=== PATIENT | female | born 2000 | race Caucasian/White ===

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

== ENCOUNTER 2021-03-18 19:00 | Outpatient (REF) | payer OTHER, SELFPAY ==
[2021-03-19 22:01] LABS: COVID-19 RT-PCR UVMMC Result Positive (Negative)
== END 2021-03-18 19:01 | disposition home or self-care (01) ==
LOC: LBN 19:00
PROVIDERS: PCP Family Medicine; Visit Provider Family Medicine
DX: Z20.822 Contact with and (suspected) exposure to COVID-19 (principal)
CPT/HCPCS: U0003

== ENCOUNTER 2021-06-02 01:22 | Outpatient (CLI) | payer OTHER, SELFPAY ==
--- NOTE | 2021-06-02 06:45 | DI.MRI_ITS ---
Exam(s) MR LOWER JOINT LT WO EXAM: MR LOWER JOINT LT WO CLINICAL HISTORY: LEFT ANKLE PAIN,m25.572 TECHNIQUE: Multiplanar multisequence MRI was performed without intravenous contrast. COMPARISON: No exams were available for comparison FINDINGS: BONES/JOINTS: No fracture or contusion pattern. No bone lesions identified. The talar dome is smooth. The ankle mortise is maintained. Small amount of fluid is seen in the posterior tibiotalar and taloc alcaneal joints. LIGAMENTS: The tibiofibular and calcaneofibular ligaments are intact. The anterior talofibular ligame nt are somewhat indistinct and shows mild edema.. The deltoid ligament is somewhat indistinct and sh ows some high signal, consistent with a sprain.. The syndesmosis is unremarkable. Sinus tarsi is nor mal. MUSCULOTENDINOUS STRUCTURES: Achilles tendon: Unremarkable. Plantar fascia: Unremarkable. Anterior Extensor tendons: Unremarkable. Posterior Tibialis: Unremarkable. Flexor Digitorum longus: Unremarkable. Flexor Hallicus longus: Unremarkable. Peroneus longus: Unremarkable. Peroneus brevis:Unremarkable. SOFT TISSUES: Unremarkable. OTHER FINDINGS: None. IMPRESSION: Sprains of both the deltoid ligament and anterior talofibular ligament. No tendon abnormalities. Epifanio bertha and cartilage surfaces intact. DATA REPOSITORY:
== END 2021-06-02 01:42 ==
PROVIDERS: PCP Family Medicine; Visit Provider Family Medicine
DX: M25.572 Pain in left ankle and joints of left foot (principal); S93.422A Sprain of deltoid ligament of left ankle, initial encounter; S93.492A Sprain of other ligament of left ankle, initial encounter
CPT/HCPCS: 73721

== ENCOUNTER 2021-10-23 04:10 | Outpatient (CLI) | payer OTHER, MEDICAID, SELFPAY ==
[2021-10-23 12:41] LABS: Abs Immature Grans 0.02 10^3/uL (0.0-0.06); Absolute Basophil Count 0.06 10^3/uL (0.0-0.2); Absolute Eosinophil Count 0.27 10^3/uL (0.0-0.7); Absolute Lymphocyte Count 2.89 10^3/uL (1.2-3.4); Absolute Neutrophil Count 6.51 10^3/uL (1.2-6.7); Basophils % 0.6; Eosinophils % 2.6; HGB 13.3 g/dL (11.2-15.7); Immature Grans % 0.2; Lymphocytes % 28.2; MCH 27.8 pg (27.0-33.0); MCHC 32.4 % (32.0-36.0); MCV 86 fL (80-95); MPV 10.7 fL (8.0-11.0); Monocytes % 4.9; Neutrophils % 63.5; Platelet Count 277 10^3/uL (130-400); RBC 4.79 10^6/uL (3.93-5.22); RDW 13.2 % (11.7-14.6); RDW-SD 41.3 fL; WBC 10.25 10^3/uL (4.4-10.8)
[2021-10-23 12:58] LABS: Iron 101 ug/dL (50-170)
[2021-10-23 13:04] LABS: ALT 25 U/L (14-59); AST 18 U/L (15-37); Albumin 4.2 g/dL (3.4-5.0); Alkaline Phosphatase 86 U/L (46-116); Anion Gap 8.1 mmol/L (3-11); BUN 12 mg/dL (7-18); Bilirubin, Total 0.5 mg/dL (0.2-1.0); CO2 29.9 mmol/L (21.0-32.0); CREATININE 0.9 mg/dL (0.55-1.02); Calcium 9.2 mg/dL (8.5-10.1); Chloride 104 mmol/L (98-107); Ferritin 19 ng/mL (8-252); Glucose 55 mg/dL (74-106); Potassium 4.7 mmol/L (3.5-5.1); Sodium 142 mmol/L (136-145); TSH (W/Ref FT4) 1.11 uIU/mL (0.36-3.74); Total Protein 7.5 g/dL (6.4-8.2)
[2021-10-24 10:36] LABS: Hemoglobin S Screen Negative (Negative)
== END 2021-10-23 04:11 | disposition home or self-care (01) ==
LOC: LOS 04:11
PROVIDERS: PCP Family Medicine; Visit Provider Family Medicine
DX: Z00.00 Encounter for general adult medical examination without abnormal findings (principal); R53.83 Other fatigue; M54.2 Cervicalgia; Z13.0 Encounter for screening for diseases of the blood and blood-forming organs and certain disorders involving the immune mechanism
CPT/HCPCS: 36415; 80053; 82728; 83540; 84443; 85025; 85660

== ENCOUNTER → 2022-10-13 02:46 | Outpatient (CLI) | payer MEDICAID, SELFPAY ==
--- NOTE | 2022-10-13 07:00 | DI.MRI_ITS ---
Exam(s) MR LOWER JOINT LT WO EXAM: MR LOWER JOINT LT WO CLINICAL HISTORY: ACL, retorn, s/p surgery,s83.519a. TECHNIQUE: Multiplanar multisequence MRI was performed. COMPARISON: MR MR LOWER JOINT RT WO from 05/24/2020 FINDINGS: The examination is limited due to patient motion artifact. BONES: There is no fracture or contusion pattern. JOINTS: Articular cartilage is unremarkable. There is a moderate joint effusion. There is no loose b adalberto. TENDONS: Extensor mechanism: Unremarkable. Medial retinaculum: Unremarkable. Lateral retinaculum: Unremarkable. Popliteus: Unremarkable. MUSCLES: Unremarkable. MENISCI: There is decreased size and abnormal signal seen in the posterior horn of the medial meniscu s. There appears to be meniscal material in the anterior joint space consistent with a tear and a fl ipped fragment. The lateral meniscus is unremarkable. SOFT TISSUES: Unremarkable. LIGAMENTS: Anterior Cruciate: There is an intact anterior cruciate ligament repair. Posterior Cruciate: Unremarkable. Medial Collateral:There is a small amount of fluid around the medial collateral ligament which may re present a sprain. No evidence of a tear. Lateral Collateral: Unremarkable. OTHER: IMPRESSION: 1. Intact ACL repair. 2. Tear of the posterior horn of the medial meniscus with flipped meniscal material into the anterior joint space. 3. Moderate joint effusion. 4. MCL sprain without evidence of a tear. DATA REPOSITORY:
== END ==
PROVIDERS: PCP Family Medicine; Visit Provider Family Medicine
DX: M23.221 Derangement of posterior horn of medial meniscus due to old tear or injury, right knee (principal); S83.411A Sprain of medial collateral ligament of right knee, initial encounter; X58.XXXA Exposure to other specified factors, initial encounter
CPT/HCPCS: 73721

== ENCOUNTER 2022-10-14 12:02 | Outpatient (CLI) | payer MEDICAID, SELFPAY ==
--- NOTE | 2022-10-14 11:30 | DI.RAD_ITS ---
Exam(s) XR KNEE LT 3V AP,LAT,GOPAL EXAM: XR KNEE LT 3V AP,LAT,GOPAL CLINICAL HISTORY: LEFT KNEE PAIN. TECHNIQUE: 2D digital imaging was performed of the left knee. Three images were obtained. Merchant ,AP and lateral views were obtained. COMPARISON: CR XR knee LT 3V AP,lat,gopal from 02/21/2018 CR,XR XR CHEST 2V PA LATERAL from 09/19/2020 FINDINGS: BONES: No acute fracture is present. No bony destructive lesion is seen. There again seen postsurgic al changes of an ACL repair. JOINTS: The knee is normally aligned. There is a small joint effusion. No loose body. SOFT TISSUE: Normal. IMPRESSION: Small joint effusion. DATA REPOSITORY: RADIATION DOSE DELIVERED:
== END 2022-10-14 12:03 | disposition home or self-care (01) ==
LOC: DIORS 12:02
PROVIDERS: PCP Family Medicine; Visit Provider Student in an Organized Health Care Education/Training Program
DX: M25.562 Pain in left knee (principal)
CPT/HCPCS: 73562

== ENCOUNTER 2022-10-22 08:33 | Day surgery (SDC) | payer MEDICAID, SELFPAY ==
[2022-10-22] VITALS (11 sets, daily range): BP systolic 101–130; BP diastolic 45–86; PULSE 53–80; RESP 11–21; TEMP 36.3–36.8; O2SAT 95–100; BMI 26.3
--- NOTE | 2022-10-22 07:15 | W.PM.DSUDISC ---
Date of service: 10/22/22 Time of Service: 15:00 Discharge Plan Disposition Patient Disposition: Home Discharge Details Attending Provider: Derrek Smith Primary Care Provider: Nyasia Frank Home Meds and New Rx's Prescriptions: New aspirin 81 mg tablet,delayed release (DR/EC) 81 mg PO DAILY 14 Days Qty: 14 0RF oxycodone 5 mg tablet 5 - 10 mg PO Q4H MDD 30 mg PRN (Reason: moderate to severe pain) Qty: 18 0RF naproxen 250 mg tablet 250 - 500 mg PO BID PRNQty: 40 0RF Rx Instructions: take with a meal Discharge Instructions Additional Instructions: Surgery: Left knee arthroscopy with horizontal posterior horn medial meniscus repair (after partial medial meniscectomy of radial and vertical tears), extensive debridement (partial ACL tearing, medial plica, and synovitis), and intercondylar notch bone marrow stimulation Activity: Weightbearing in full extension-only for 6 weeks. Use crutches and/or brace as needed to protect and maintain knee straight. Seated/ non-weight bearing flexion 0-90 degrees maximum for 6 weeks. 120 degrees maximum flexion for 8 weeks. Spin/bike after 8 weeks. No weighted deeper flexion (squats, lunges) for 10 weeks. ACL rehab after 3 months. Prescriptions: Aspirin 81 mg take 1 daily to prevent a blood clot for 14 days Naproxen 250 mg take 1-2 every 12 hours with a meal as needed for moderate pain Oxycodone 5 mg take 1-2 every 4-6 hours as needed for severe pain You may use qdlz-khc-zfvhhhi Tylenol (acetaminophen) as needed for mild pain. These pain medications may be taken all at once or in different combinations as needed. Also, recommend Colace (docusate) as a stool softener as surgery and pain medicine cause constipation. You may try ubng-vin-ybazpye diphenhydramine (Benadryl) 25-50 mg nightly as a sleep aid Dressings: Leave dressing in place for 3 days. May then remove and leave open to air or cover incisions with Band-Aids. Leave the sticky Steri-Strips in place until they fall off or remove them after you shower. May shower after 5 days. Follow-up: 10-[address] Smith You may take off the leg compression stockings this evening at home. You may also leave them on a few days longer if you have a history of leg swelling or edema. Let us know right away if you develop any redness, drainage, fevers, chest pain, or trouble breathing. Do not drink alcohol or drive for at least 24 hours after anesthesia. Please call the office during business hours with any questions or concerns. Stand Alone Forms: Anesthesia Discharge Inst., Abilio Fierro (DSU) Discharge Orders Discharge Orders: Discharge Order (Routine); Ordered 10/22/22 Ordered By: Derrek Smith DS: Diagnosis Discharge Diagnosis (1) Bucket handle tear of meniscus of left knee: Status: Acute (2) Left ACL tear: Status: Acute
--- NOTE | 2022-10-22 07:18 | ROE_ITS ---
Date of service: 10/22/22 Time of Service: 11:00 Operative Note Operative Note DATE OF PROCEDURE: 10/22/22 PRE-OP DIAGNOSIS: Left knee 1. Recurrent medial meniscus tear 2. Prior ACL reconstruction POST-OP DIAGNOSIS: same Left knee 1. Recurrent medial meniscus tear 2. Prior ACL reconstruction with partial failure PROCEDURE: Left knee 1. Extensive debridment, CPT# 52042: Debridement suprapatellar adhesions, resection prominent patellofemoral plica, debridement partial ACL graft tearing, and extensive synovectomy 2. Medial meniscus repair, CPT# 99860 and partial medial meniscectomy involving resection of the radial and vertical tear components of the posterior horn into the meniscal body 3. Microfracture bone marrow stimulation, CPT #28984: Multiple drilling intercondylar notch SURGEON: Derrek Smith RESPIRATORY THERAPY TECHNICIAN: None None ANESTHESIA TYPE: Local By Surgeon and General LMA/ETT Refer to Anesthesia Record ESTIMATED BLOOD LOSS: 5 PATHOLOGY: none sent TOURNIQUET TIME: 0 COMPLICATIONS: None Patient was transported to: PACU Patient's condition: stable Indications: Please see complete medical record for details. Findings: Exam under anesthesia: Improved, nearly full range of motion. Moderate valgus alignment. Mild terminal hyperextension. Soft Arsh exam with moderately increased anterior translation. Contralateral side also ACL reconstruction so no good comparison. Arthroscopic findings: Mild suprapatellar adhesions. Large plical band versus engaging thickened synovitis medial patellofemoral and anterior medial compartments. Mild chondromalacia medial compartment. Obvious displaced bucket-handle medial meniscus tear involving majority of the posterior horn and meniscal body stopping before the anterior horn. Chronic and irregular meniscal displaced tissue and remnant appearance probably relating to prior injury and repair. Poor quality appearing ACL hamstring reconstruction with separation between the graft strands and partial tearing maybe about 50% at the mid to tibial side. On probing the graft did demonstrate either elongation or laxity and unfortunately poor quality tissue with no core graft healed together. Intact lateral compartment cartilage and meniscus. In hyperextension, possible ACL graft impingement at the site of tearing in the intercondylar notch. Procedure Description: In the operating room, general anesthesia was induced. The patient was positioned supine on the operating room table. All bony prominences were well- padded. Preoperative antibiotics were administered. The knee was prepped and draped in the usual sterile fashion. The correct patient, procedure, and side of the procedure were all verified prior to incision. Exam under anesthesia was performed. 10 cc of 0.25% bupivacaine containing epinephrine was infiltrated about the planned anteromedial and anterolateral knee arthroscopy portals, which were different than the prior portals due to growth or placement as the prior ones were far low and away from the patellar tendon. The portals were established and a complete diagnostic arthroscopy was performed with relevant findings detailed above. The mechanical shaver was used to remove adhesions from the suprapatellar space. The meniscal biter was used to resect and establish edges of the large medial patellofemoral and anterior medial plical band or engaging scar tissue synov itis. The mechanical shaver was used to debride and resect this tissue once the free edges of been established to stable's margins. At this point, the arthroscope was able to be directed into the medial compartment. There was obvious medial meniscus tearing and ACL tearing as described above. Unfortunately, this represented a bad combination of injuries recurrent significant medial meniscus tearing and ACL tearing loss of primary and secondary stabilizers. The displaced meniscus tissue was not the best quality and had vertical tear at the posterior horn and also a moderately significant r adial tear at the posterior horn body junction. The meniscal remnant throughout the posterior horn had an additional horizontal tear that propagated to the capsular margin. The meniscal remnant otherwise had a stable posterior root attachment and attachment peripheral zone into the anterior horn. The loose and lax ACL tissue was inspected and carefully resected using mechanical shaver and the radiofrequency wand to a more appropriate stable margin taking care not to debride any excess tissue and preserve as much reasonable ACL reconstructed graft as possible. Numerous photos and examples were taken for future planning possible revision ACL reconstruction. The medial meniscus was then reduced using the blunt trocar into the medial compartment. Given the young age, repair was considered, but on reduction and probing the splits and meniscus tissue quality were not appropriate. The meniscal biters were used to contour around the radial tear, which resulted in the radial tear being full-thickness to the red zone remnant so combination of biters and boone were then used to contour about this reduced radial tear resecting meniscus into the anterior horn and into the posterior horn. The posterior horn reduced tear was likewise probed and now without the radial attachments more anteriorly and its vertical tear additionally did not have the quality needed for repair. Meniscal biters and shaver were used to resect this tissue and establish appropriate contour into the root. The meniscal remnant had a horizontal tear throughout the entire posterior horn. Otherwise stable r emainder of remnant tissue. Numerous pictures were also taken and probing to confirm mild chondromalacia and fairly diminutive remnant involving the red zone peripheral meniscus tissue. Given the horizontal tear still present and the need to preserve some meniscus tissue, decision was made to proceed with all?inside cerclage repair. The knee scorpion was brought in through the anteromedial portal and used to place 3 circumferential mini 0.9 mm suture tape stitches well displaced throughout the posterior horn around the horizontal tear tissue with each secured using SMC arthroscopic knot taking care to direct the knot inferiorly and peripherally away from the joint. The posterior horn meniscal remnant now had more reasonable contour shape and repair of the horizontal tear. The knee was copiously irrigated with arthroscopic fluid until there was a clear effluent. Care was taken to ensure all meniscal fragments were removed. Lastly, given the significant meniscus and ACL injuries. Decision was made to proceed with bone marrow stimulation, which involve small 1.1 mm K wire multiple drillings anterior to the PCL through the anterior lateral portal into the medial intercondylar wall expressing blood and fat droplets from in the bone appropriately. The knee was then drained of all fluid. The anteromedial and anterolateral portals were closed in 3-0 Monocryl in a buried interrupted fashion. Mastisol, Steri-Strips, and 4 x 4 gauze were applied over the incisions followed by sterile soft roll. The knee was then wrapped gently with an XOCHITL comressive bandage. The patient awoke from anesthesia without complication and was transferred to the recovery room in a stable condition.
--- NOTE | 2022-10-22 08:22 | ANES.PREOP_ITS ---
General Info Date of Service Date Performed: 10/22/22 Height: 5 ft 8 in Weight: 78.471 kg Body Mass Index (BMI): 26.3 Surgical Procedure: Operation Date: 10/22/22 09:55 Proposed Procedure Side Surgeon p Knee Arthroscopy w Probable Meniscus Repair & Bone Stimulation Left Derrek Smith MD Meds Allergies and Home Medications Allergies Allergy/AdvReac Type Severity Reaction Status Date / Time Penicillins Allergy Intermediate Rash Verified 10/22/22 08:50 cephalexin AdvReac Intermediate GI UPSET Verified 10/22/22 08:50 Home Medication Medication Instructions Recorded Unknown [No Known Home Meds] 10/14/22 Current Visit Medications: Current Medications Generic Name Dose Route Start Last Admin Trade Name Freq PRN Reason Stop Dose Admin Ringer's Solution 1,000 mls @ 30 mls/hr 10/22/22 06:00 IV 11/20/22 23:59 INFUSION SHANI Cefazolin Sodium/Dextrose 2 gm in 50 mls @ 100 mls/hr 10/22/22 06:00 Ancef Duplex IVPB 10/22/22 16:00 PREOP SHANI IV Miscellaneous Supplies 1 each 10/22/22 06:00 Iv Access IV 11/20/22 23:59 DIRECTED SHANI Oxycodone HCl 0 mg 10/22/22 07:15 Oxycodone 5 Mg Tab PO 11/21/22 07:14 Q3H PRN PRN Pain Sodium Chloride 0 ml 10/22/22 06:00 Normal Saline Flush 10 Ml Syr IV 11/20/22 23:59 PRN PRN Sodium Chloride 0 ml 10/22/22 06:00 Normal Saline 10 Ml Vial IJ 11/20/22 23:59 DIRECTED PRN Sterile Water 0 ml 10/22/22 06:00 Water,Injection,Sterile 10 Ml Vial IJ 11/20/22 23:59 DIRECTED PRN PFSH Active Problems Active Problems: Problem Status Onset Code Asthma 05/02/13 J45.909 Torn ACL S83.519A Lymphadenopathy of head and neck Skin pigmentation disorder Routine sports physical exam Injury of posterolateral corner of left knee S89.92XA Status post repair of anterior cruciate ligament 05/15/15 Z98.890 Enuresis 12/10/14 R32 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 Well child examination Z00.129 Fever R50.9 Medial meniscus tear S83.249A Right hamstring muscle strain S76.311A Fever R50.9 Abdominal pain R10.9 Headache R51.9 RLQ abdominal pain R10.31 Leukocytosis (leucocytosis) D72.829 Seasonal allergies J30.2 Abdominal pain R10.9 Chronic sinusitis J32.9 Enlarged adenoids J35.2 Lyme disease A69.20 Chronic rhinitis J31.0 COVID-19 U07.1 Sprain of ankle, deltoid, left S93.422A Sprain of anterior talofibular ligament of left ankle S93.492A Encounter for annual physical exam Z00.00 Neck pain M54.2 Depression F32.A 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 Sprain of jaw, left side, initial encounter S03.42XA Pre-employment health screening examination Z02.1 Encounter for health-related screening Z13.9 Bucket handle tear of meniscus of left knee 09/25/22 S83.201A Medical History Medical History Enuresis 12/10/14 Postnasal drip 01/08/14 Rash 09/11/14 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 Tender lymph node 11/08/14 Surgical History Surgical History Arthroplasty of knee 05/15/15 [facility]; RIGHT KNEE History of bunionectomy History of repair of anterior cruciate ligament of left knee History of repair of anterior cruciate ligament of right knee Repair, ACL 05/15/15 [facility]; RIGHT KNEE S/P ACL repair [facility]; right knee; with hamstring 05/15/15 Tobacco Smoking/Tobacco Use Status: Never Passive smoking exposure: Yes Second hand exposure: No Alcohol Alcohol Intake: current Alcohol intake frequency: holidays/special occasions only Alcohol type: beer and wine Substance Use Substance use: Never Substance use type: does not use Vital Signs and Lab Results Lab Results Blood Type / Crossmatch: No Data to Display Complete Blood Count: No Data to Display Complete Metabolic Panel: No Data to Display Liver Function Panel: No Data to Display Coagulation Panel: No Data to Display Cardiac Panel: No Data to Display Arterial Blood Gas: No Data to Display Venous Blood Gas: No Data to Display Pancreas Panel: No Data to Display Thyroid Panel: No Data to Display Infectious Disease: No Data to Display Blood Cultures: No Data to Display Toxicology Panel: No Data to Display Panel: No Data to Display Anesthesia Assessment and Plan Anesthesia History Personal History: No History of Anesthesia Complications Family History: No Family History of Anesthesia Complications Exercise Tolerance Exercise Tolerance: Metabolic Equivalents>4 Pertinent Negatives Pertinent Negatives: No Symptoms of GERD, No Major Cardiovascular Symptoms or Complaints, No Major Pulmonary Symptoms or Complaints and No History of CVA/TIA Cardiac & Pulmonary Exam Cardiac Exam: Normal S1/S2 Heart Sounds Pulmonary Exam: Clear Bilateral Breath Sounds Implantable Cardiac Device Does patient have a Pacemaker or an ICD?: No Airway Exam Known Difficult Airway: No Mallampati Class: 2 Mouth Opening: Normal (> 3cm) Thyromental Distance: Greater than 3 cm Neck Range of Motion: Full ROM Neck Circumference: Normal Teeth Condition: Normal Dentition ASA Classification ASA Score: ASA 2 Emergency Case?: No NPO Status NPO Status: NPO Clears >2 hours, Solids >8 hours Status Status: Negative HCG Anesthesia Plan Resuscitation Status: Full Code Anesthesia Technique: General Anesthesia Airway Planned: LMA Monitors Used: Standard Monitors
[2022-10-22] MEDS: Lactated Ringers 1,000 ML 30 ML IV ×2 (09:30→11:36)
[2022-10-22] MEDS: EPINEPHrine 30 MG/30 ML VIAL (12:08)
[2022-10-22] MEDS: fentaNYL 100 MCG/2 ML VIAL IVP ×2 (12:52→13:04)
[2022-10-22] MEDS: oxyCODONE 5 MG TAB PO (15:06)
--- NOTE | 2022-10-22 16:24 | W.ANESPOSTOP ---
Postoperative Evaluation Date, Time and Location Date Performed: 10/22/22 Time Performed: 15:10 Patient Location: Day Surgery Unit Vital Signs Most Recent Imported Vital Signs: Most Recent Vital Signs Temp Pulse Resp BP Pulse Ox 36.8 C 66 18 128/86 100 10/22/22 15:06 10/22/22 15:06 10/22/22 15:06 10/22/22 15:06 10/22/22 15:06 Pain Score Most Recent Pain Score: Most Recent Pain Score Pain Level 4 10/22/22 15:06 Assessment Mental Status: Awake (Alert & Oriented to Patient Baseline) Airway and Respiratory Function: Patent airway with normal (patient baseline) respiratory exam Cardiovascular Function: Hemodynamically Stable Hydration Status: Adequately Hydrated Nausea & Vomiting: No Nausea or Vomiting Pain: Pain is tolerable per patient Peripheral Nerve Block: Patient did not receive a nerve block
== END 2022-10-22 15:15 | disposition home or self-care (01) ==
PROVIDERS: PCP Family Medicine; Visit Provider Student in an Organized Health Care Education/Training Program
PROC: (CPT 29882; principal; 2022-10-22 09:45)
DX: M23.222 Derangement of posterior horn of medial meniscus due to old tear or injury, left knee; M65.862 Other synovitis and tenosynovitis, left lower leg; M94.262 Chondromalacia, left knee; Y83.2 Surgical operation with anastomosis, bypass or graft as the cause of abnormal reaction of the patient, or of later complication, without mention of misadventure at the time of the procedure; Y79.2 Prosthetic and other implants, materials and accessory orthopedic devices associated with adverse incidents
CPT/HCPCS: 29882; 29876; 29879; J0131; J1100; J2250; J2270; J2405; J2704; J3010

== ENCOUNTER 2022-11-03 11:14 | Outpatient (REF) | payer MEDICAID, SELFPAY ==
[2022-11-04 09:09] LABS: HBs Antibody, Quant 101.6 mIU/mL (See Note); Hepatitis B Surface Ab Positive (See Note)
== END 2022-11-03 11:15 | disposition home or self-care (01) ==
LOC: LBN 11:14
PROVIDERS: PCP Family Medicine; Visit Provider Family Medicine
DX: Z11.59 Encounter for screening for other viral diseases; R76.8 Other specified abnormal immunological findings in serum
CPT/HCPCS: 86706

== ENCOUNTER 2023-03-16 15:00 | Outpatient (REF) | payer OTHER, MEDICAID, SELFPAY ==
[2023-03-16 21:29] LABS: Abs Immature Grans 0.04 10^3/uL (0.0-0.06); Absolute Basophil Count 0.06 10^3/uL (0.0-0.2); Absolute Eosinophil Count 0.37 10^3/uL (0.0-0.7); Absolute Monocyte Count 0.71 10^3/uL (0.1-0.8); Absolute Neutrophil Count 7.31 10^3/uL (1.2-6.7); Basophils % 0.5; ESR 1 mm/hr (0-20); Eosinophils % 2.9; HCT 39.3 % (36.0-46.0); Immature Grans % 0.3; Lymphocytes % 34.1; MCH 29.1 pg (27.0-33.0); MCHC 33.1 % (32.0-36.0); MCV 88 fL (80-95); Monocytes % 5.5; Neutrophils % 56.7; Platelet Count 273 10^3/uL (130-400); RBC 4.47 10^6/uL (3.93-5.22); RDW 11.7 % (11.7-14.6); RDW-SD 37.4 fL; WBC 12.89 10^3/uL (4.4-10.8)
== END 2023-03-16 15:01 | disposition home or self-care (01) ==
LOC: LBN 15:00
PROVIDERS: PCP Family Medicine; Visit Provider Family Medicine
DX: M54.2 Cervicalgia (principal); R68.84 Jaw pain; R59.0 Localized enlarged lymph nodes
CPT/HCPCS: 85652; 85025

== ENCOUNTER 2023-03-31 21:17 | Outpatient (REF) | payer OTHER, MEDICAID, SELFPAY ==
[2023-03-31 21:38] LABS: Abs Immature Grans 0.06 10^3/uL (0.0-0.06); Absolute Basophil Count 0.05 10^3/uL (0.0-0.2); Absolute Lymphocyte Count 2.74 10^3/uL (1.2-3.4); Absolute Monocyte Count 1.08 10^3/uL (0.1-0.8); Basophils % 0.3; Eosinophils % 0.7; HCT 40.3 % (36.0-46.0); HGB 13.3 g/dL (11.2-15.7); Immature Grans % 0.3; Lymphocytes % 15.5; MCH 29.3 pg (27.0-33.0); MCV 89 fL (80-95); MPV 10.9 fL (8.0-11.0); Monocytes % 6.1; Neutrophils % 77.1; Platelet Count 258 10^3/uL (130-400); RBC 4.54 10^6/uL (3.93-5.22); RDW 11.9 % (11.7-14.6); RDW-SD 38.1 fL; WBC 17.66 10^3/uL (4.4-10.8)
[2023-03-31 21:39] LABS: ESR 14 mm/hr (0-20)
[2023-03-31 21:42] LABS: Absolute Eosinophil Count 0.12 10^3/uL (0.0-0.7); Absolute Neutrophil Count 13.62 10^3/uL (1.2-6.7)
[2023-03-31 21:51] LABS: ALT 20 U/L (14-59); AST 16 U/L (15-37); Alkaline Phosphatase 84 U/L (46-116); Anion Gap 9.2 mmol/L (3-11); BUN 8 mg/dL (7-18); Bilirubin, Total 0.3 mg/dL (0.2-1.0); C-Reactive Protein 6.38 mg/dL (0.0-0.3); CO2 27.8 mmol/L (21.0-32.0); Calcium 9.4 mg/dL (8.5-10.1); Chloride 102 mmol/L (98-107); Glucose 85 mg/dL (74-106); Potassium 3.9 mmol/L (3.5-5.1); Sodium 139 mmol/L (136-145); Uric Acid 2.3 mg/dL (2.6-6.0)
[2023-04-01 17:44] LABS: Rheumatoid Factor 11.2 IU/mL (<12.0)
[2023-04-02 10:04] LABS: IgA 81 mg/dL (85-499); IgG 743 mg/dL (610-1616); IgM 172 mg/dL (35-242)
[2023-04-02 10:13] LABS: Cyclic Citrullinated Peptide <2.5 U/mL (<5.0)
[2023-04-02 12:13] LABS: Albumin 60.5 % (55.8-66.1); Albumin g/dL 4.4 g/dL (3.6-5.2); Total Protein 7.2 g/dL (6.3-8.2)
[2023-04-05 16:00] LABS: ANA Interpretation Negative (Negative)
== END 2023-03-31 21:18 | disposition home or self-care (01) ==
LOC: LBN 21:17
PROVIDERS: PCP Family Medicine; Visit Provider Family Medicine
DX: R59.1 Generalized enlarged lymph nodes (principal); M25.549 Pain in joints of unspecified hand
CPT/HCPCS: 80053; 82784; 85652; 86200; 84165; 84550; 85025; 86038; 86140; 86431

== ENCOUNTER 2023-08-12 07:33 | Day surgery (SDC) | payer OTHER, MEDICAID, SELFPAY ==
[2023-08-12] VITALS (23 sets, daily range): BP systolic 104–125; BP diastolic 35–72; PULSE 52–75; RESP 10–20; TEMP 36.4–36.8; O2SAT 97–100; BMI 26.2
--- NOTE | 2023-08-12 07:05 | W.PM.DSUDISC ---
Date of service: 08/12/23 Time of Service: 14:00 Discharge Plan Disposition Patient Disposition: Home Condition: Stable Discharge Details Attending Provider: Derrek Smith Primary Care Provider: Nyasia Frank Home Meds and New Rx's Prescriptions: New aspirin 81 mg capsule 81 mg PO DAILY 14 Days Qty: 14 0RF naproxen 250 mg tablet 250 - 500 mg PO BID PRN (Reason: moderate pain and swelling) Qty: 40 0RF oxycodone 5 mg tablet 5 - 10 mg PO .q4-6h MDD 30 mg PRN (Reason: severe pain) Qty: 18 0RF Discharge Instructions Additional Instructions: Surgery: Left knee arthroscopy with revision ACL reconstruction (quadriceps allograft with internal brace), partial medial & lateral meniscectomy, and removal of hardware Activity: Weightbearing as tolerated. No brace or crutches needed as soon as comfortable and stable on knee. Restore full knee extension as soon as possible. Perform early quad sets/quadriceps isometrics. Gradually increase flexion to full. Recommend elevation to minimize swelling discomfort. Encourage ankle pumps and wiggle toes to improve circulation. A physical therapy prescription will be sent electronically to begin in 2 to 3 weeks. Avoid sports activities for about 9 months. Prescriptions: Aspirin 81 mg take 1 daily to prevent a blood clot for 14 days, starting tomorrow morning Naproxen 250 mg take 1-2 every 12 hours with a meal as needed for moderate pain Oxycodone 5 mg take 1-2 every 4-6 hours as needed for severe pain You may use jdea-qxr-wrqoshz Tylenol (acetaminophen) as needed for mild pain. These pain medications may be taken all at once or in different combinations as needed. Also, recommend Colace (docusate) as a stool softener as surgery and pain medicine cause constipation. You may try demw-rwe-pfkdefu diphenhydramine (Benadryl) 25-50 mg nightly as a sleep aid Dressings: Loosen/adjust XOCHITL bandage for comfort. Leave dressing in place for 3 days. May then remove and leave open to air or cover incisions with Band-Aids. Leave the sticky Steri-Strips in place until they fall off or remove them after you shower. May shower after 5 days. Follow-up: 10-[address] Smith You may take off the leg compression stockings this evening at home. You may also leave them on a few days longer if you have a history of leg swelling or edema. Let us know right away if you develop any redness, drainage, fevers, chest pain, or trouble breathing. Do not drink alcohol or drive for at least 24 hours after anesthesia. Please call the office during business hours with any questions or concerns. Stand Alone Forms: Anesthesia Discharge Inst., Sameer.[email or web address] Interaction, Abilio Fierro ([facility]U) Discharge Orders Discharge Orders: Discharge Order (Routine); Ordered 08/12/23 Ordered By: Shilpa Valerio DS: Diagnosis Discharge Diagnosis (1) Left ACL tear: Status: Acute
--- NOTE | 2023-08-12 07:19 | W.PM.OP ---
Date of service: 08/12/23 Time of Service: 11:00 Operative Note Operative Note DATE OF PROCEDURE: 08/12/23 PRE-OP DIAGNOSIS: Left knee 1. 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 Retained prior ACL reconstruction hardware 3. Recurrent medial meniscus tear POST-OP DIAGNOSIS: same Left knee 1. 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 Retained prior ACL reconstruction hardware 3. Recurrent medial meniscus tear 4. Small lateral meniscus tear PROCEDURE: Left knee: 1. Revision ACL reconstruction, CPT #59510: Quadriceps allograft with internal brace 2. Partial medial & meniscectomy, CPT #38717 3. Removal of deep hardware, CPT #47211 SURGEON: Derrek Smith SENIOR DEVOPS ENGINEER: Shilpa Valerio ANESTHESIA TYPE: Local By Surgeon, General LMA/ETT and Primary Nerve Block Refer to Anesthesia Record ESTIMATED BLOOD LOSS: 10 PATHOLOGY: none sent TOURNIQUET TIME: 0 COMPLICATIONS: None Patient was transported to: PACU Patient's condition: stable Implants: Arthrex ACL TightRope II RT internal brace and ABS with vs 14mm round cortical button QuadLink pre-sutured quadriceps allograft: 9.5 x70mm Indications: Please see complete medical record for details. Findings: Exam under anesthesia: Full range of motion with exaggerated terminal hyperextension. Positive Arsh, positive anterior drawer, and positive pivot glide. Stable varus and valgus. Valgus lower extremity alignment. Arthroscopic findings: Minimal synovitis. Stable mild medial chondromalacia. Largely intact medial meniscus repair of the posterior horn horizontal tear after prior meniscectomy with mild fraying centrally between the repair sutures. Small white zone only lateral meniscus body fraying. Bulbous degenerated and lax anterior portion of the prior ACL graft with healed intercondylar microfracture. Thin remaining more posterior intact ACL graft tissue although separate strands and not appearing vascularized. Procedure Description: In the operating room, general anesthesia was induced. The patient was positioned supine on the operating room table. All bony prominences were well-padded. Preoperative antibiotics were administered. The knee was prepped and draped in the usual sterile fashion. The correct patient, procedure, and side of the procedure were all verified prior to incision. Exam under anesthesia was performed. Local anesthetic containing epinephrine was infiltrated about the planned anteromedial, anterolateral, lateral distal femoral, and pretibial surgery sites with prior incisions used. The standard high and tight anterolateral and anteromedial portals were established and a complete diagnostic arthroscopy was performed with relevant findings detailed above. A passport cannula was inserted in both the anteromedial and anterolateral portals. The medial meniscus repair was probed and inspected and largely well-healed and stable. There was mild fraying horizontally between the repair sutures, which was debrided a small amount to a more stable zurita healthy tissue margin using the torpedo shaver. The lateral meniscus had a white zone only small amount of fraying about the body that was trimmed with a torpedo shaver as well. Back in the intercondylar area, the ACL remnant was thoroughly inspected. Meticulously the obviously lax and abnormal remnant tissue was removed with the ablator and the shaver. 50% or more of the remaining graft was removed until a more zurita appropriate healthy ACL tissue was encountered. Given the knee instability, and this diminutive tissue, which on probing was avascular and still multiple strands not well-healed together decision was made to proceed with the planned reconstruction. The ACL remnant was removed exposing the prior sockets, which were appropriately located on the femur and tibia. A small notchplasty was performed to improve visualization of the lateral intercondylar wall. The allograft was then measured and prepared on the back table. The TightRope II BTB with internal brace and TightRope II ABS adjustable-loop cortical suspensory fixation implants were loaded on QuadLink pre-sutured quadriceps allograft. The femoral and tibial ends each measured 9.5 mm. The graft was marked at 20 mm from each end. On the femoral side, a flipping suture was added to the cortical button. On the ABS side, the tensioning sutures were marked and a shuttle suture was added. The graft was manually tensioned and the construct did not demonstrate any elongation. The internal brace FiberTape's were then draped along the graft, and the graft was then compressed in a graft tube and covered with vancomycin soaked sponges. The femoral guide was then placed through the anterolateral portal carefully targeting the appropriate anatomic ACL origin. The outer 9 mm diameter of the guide was positioned anatomically with appropriate space between the proximal and posterior articular margins, which was slightly lower and shallower than the previous socket although quite close in location. On the lateral thigh, drill guide position and angle adjusted to about 60 degree angle to the longitudinal axis of the femur in the coronal plane and 20 degree angle to the trans-epicondylar axis in the axial plane to create the most optimal femoral socket. Knife and snap were used to open the skin and IT band and placed the drill guide on bone while maintaining appropriate position on the lateral wall. The prior cortical button was avoided. The tunnel length was noted to be used for marking and passing the femoral button. The flip cutter was then drilled into the knee through some abnormal prior tissue. The drill guide malleted 7 mm into the cortex. The remainder of the targeting guide removed. The FlipCutter was deployed to 9.5 mm and retrograde reaming done eventually to a depth of 30 mm. The flip cutter was initially drilled, but had to be stopped as it engaged zurita permanent suture material. The flip cutter was then manually delivered back into the intercondylar area, the shaver and various grasper was used to remove permanent FiberWire suture from the prior repair. Carefully the socket retrograde drilling done again and more suture balled up material removed with this repeated a few times until all permanent material was out of the way to fully prepare the new socket to the appropriate depth. Bony debris was removed with the shaver. The flip cutter was then closed, withdrawn, and a FiberStick used to pass a #2 FiberWire shuttle stitch, which was withdrawn out the anterolateral portal. The socket was directly visualized through the anteromedial portal and appropriately placed and clear of soft tissue and permanent suture material. The tibial guide was then used to target the anatomic ACL insertion through the anteromedial portal. The drill angle adjusted to 55 degrees and a pretibial incision made in the prior larger incision with the targeting adjusted slightly medially for new cortical bone. The drill guide was placed on bone, tunnel length noted, and the flip cutter drilled to the appropriate location through again abnormal prior anchor and permanent suture material. The drill guide malleted 7 mm into the cortex. The remainder of the targeting guide removed. The FlipCutter was deployed to 9.5mm and retrograde reaming done to a depth of 35 mm, again after multiple drilling passes removing permanent suture material and graft from the tunnel. Bony debris was removed with the shaver. The flip cutter was then closed, withdrawn, and a FiberStick used to pass a #2 FiberWire shuttle stitch, which was withdrawn out the anteromedial portal. The mechanical shaver was used to remove bone debris as well as chamfer and remove soft tissue from the edges of the sockets. A femoral shuttle sutures were withdrawn out the anterior medial portal. The PassPort was removed. This portal dilated to accommodate the graft size. The graft was brought over to the knee and the femoral sutures shuttled out the lateral thigh and advanced until the button was near the far cortex. Under arthroscopic visualization with the knee slightly hyperflexed, and the button was then passed and flipped on the far cortex. Counter traction was then maintained on the tibial side of the graft while it was carefully advanced into the knee and then about 15 mm into the femoral socket. The tibial sutures were then shuttled through the tibial tunnel and passing stitch removed while carefully noting the tensioning stitches. The graft was then dunked about 15 mm into the tibial socket. 14 mm round ABS button was chosen due to the prior tunnel in similar location and was then loaded to the ABS loop and internal brace FiberTape tails and tension sutures and used to bring the cortical button down to bone. The graft was advanced and then provisionally tensioned on both the femoral and tibial sides. The knee was then cycled 22 times, tensioning rechecked, and final tightening done with the knee in full extension with a moderate reverse Arsh maintained. The graft position and tension were appropriate. There was no impingement in full extension. Arsh exam was significantly improved and stable. Femoral passing sutures were removed. Backup knots were then tied on both sides and suture tails cut. FiberTape internal brace sutures were then tied directly visualized over the anterior cortical button as well without over constraining the construct. The knee and all portals were copiously irrigated and then knee drained of arthroscopic fluid. 3-0 Monocryl was used to close the portals and small incisions in a buried interrupted fashion. Mastisol, Steri-Strips, Xeroform, 4 x 4 gauze, and sterile soft roll was applied. The extremity was wrapped gently with an Laron bandage. A soft knee immobilizer placed. The patient awoke from anesthesia without complication and was transferred to the recovery room in a stable condition.
--- NOTE | 2023-08-12 08:08 | W.ANESPRE ---
General Info Date of Service Date Performed: 08/12/23 Height: 5 ft 8 in Weight: 78.2 kg Body Mass Index (BMI): 26.2 Surgical Procedure: Operation Date: 08/12/23 10:25 Proposed Procedure Side Surgeon p Knee ACL Reconstruction (Allograft) Left Derrek Smith MD Meds Allergies and Home Medications Allergies Allergy/AdvReac Type Severity Reaction Status Date / Time Penicillins Allergy Intermediate Rash Verified 08/12/23 07:58 cephalexin AdvReac Intermediate GI UPSET Verified 08/12/23 07:58 Home Medication Medication Instructions Recorded aspirin 81 mg capsule 81 mg PO DAILY prevent blood clot 08/12/23 14 days #14 caps naproxen 250 mg tablet 250 - 500 mg (1 - 2 x 250 mg) PO 08/12/23 BID PRN moderate pain and swelling #40 tabs oxycodone 5 mg tablet 5 - 10 mg (1 - 2 x 5 mg) PO .q4-6h 08/12/23 PRN severe pain #18 tabs Current Visit Medications: Current Medications Generic Name Dose Route Start Last Admin Trade Name Freq PRN Reason Stop Dose Admin Ringer's Solution 1,000 mls @ 30 mls/hr 08/12/23 06:00 IV 08/12/23 23:59 INFUSION SHANI Cefazolin Sodium/Dextrose 2 gm in 50 mls @ 100 mls/hr 08/12/23 06:00 Ancef Duplex IVPB 08/12/23 23:59 PREOP SHANI Tranexamic Acid/Sodium Chloride 1,000 mg in 100 mls @ 600 mls/hr 08/12/23 06:00 IVPB 08/12/23 23:59 PREOP SHANI IV Miscellaneous Supplies 1 each 08/12/23 06:00 Iv Access IV 08/12/23 23:59 DIRECTED SHANI Oxycodone HCl 0 mg 08/12/23 07:04 Oxycodone 5 Mg Tab PO 09/11/23 07:03 Q3H PRN PRN Pain Sodium Chloride 0 ml 08/12/23 06:00 Normal Saline Flush 10 Ml Syr IV 08/12/23 23:59 PRN PRN Sodium Chloride 0 ml 08/12/23 06:00 Normal Saline 10 Ml Vial IJ 08/12/23 23:59 DIRECTED PRN Sterile Water 0 ml 08/12/23 06:00 Water,Injection,Sterile 10 Ml Vial IJ 08/12/23 23:59 DIRECTED PRN [facility] Active Problems Active Problems: Problem Status Onset Code Lymphadenopathy R59.1 Swollen gland R59.9 Encounter for pre-school health examination Z02.0 Left ACL tear S83.512A Asthma 05/02/13 J45.909 Torn ACL S83.519A Lymphadenopathy of head and neck Skin pigmentation disorder Routine sports physical exam Injury of posterolateral corner of left knee S89.92XA Status post repair of anterior cruciate ligament 05/15/15 Z98.890 Enuresis 12/10/14 R32 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 Well child examination Z00.129 Fever R50.9 Medial meniscus tear S83.249A Right hamstring muscle strain S76.311A Fever R50.9 Abdominal pain R10.9 Headache R51.9 RLQ abdominal pain R10.31 Leukocytosis (leucocytosis) D72.829 Seasonal allergies J30.2 Abdominal pain R10.9 Chronic sinusitis J32.9 Enlarged adenoids J35.2 Lyme disease A69.20 Chronic rhinitis J31.0 COVID-19 U07.1 Sprain of ankle, deltoid, left S93.422A Sprain of anterior talofibular ligament of left ankle S93.492A Encounter for annual physical exam Z00.00 Neck pain M54.2 Depression F32.A 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 Sprain of jaw, left side, initial encounter S03.42XA Pre-employment health screening examination Z02.1 Encounter for health-related screening Z13.9 Bucket handle tear of meniscus of left knee 09/25/22 S83.201A Medical History Medical History Postnasal drip 01/08/14 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 Rash 09/11/14 Tender lymph node 11/08/14 Enuresis 12/10/14 Surgical History Surgical History History of repair of anterior cruciate ligament of left knee History of repair of anterior cruciate ligament of right knee History of bunionectomy S/P ACL repair [facility]; right knee; with hamstring 05/15/15 Repair, ACL 3/9/16 [facility]; RIGHT KNEE Arthroplasty of knee 05/15/15 [facility]; RIGHT KNEE Tobacco Smoking/Tobacco Use Status: Never Passive smoking exposure: Yes Second hand exposure: No Alcohol Alcohol Intake: current Alcohol intake frequency: a few times a week Alcohol type: beer and wine Substance Use Substance use: Socially Substance use type: marijuana Vital Signs and Lab Results Vital Signs Most Recent Vital Signs in EMR: Most Recent Vital Signs Temp Pulse Resp BP Pulse Ox 36.4 C L 63 16 125/66 98 08/12/23 08:00 08/12/23 08:00 08/12/23 08:00 08/12/23 08:00 08/12/23 08:00 Point of Care Results Point of Care Results: POC- Test(urine) Negative 08/12/23 08:06 Lab Results Blood Type / Crossmatch: No Data to Display Complete Blood Count: No Data to Display Complete Metabolic Panel: No Data to Display Liver Function Panel: No Data to Display Coagulation Panel: No Data to Display Cardiac Panel: No Data to Display Arterial Blood Gas: No Data to Display Venous Blood Gas: No Data to Display Pancreas Panel: No Data to Display Thyroid Panel: No Data to Display Infectious Disease: No Data to Display Blood Cultures: No Data to Display Toxicology Panel: No Data to Display Panel: No Data to Display Anesthesia Assessment and Plan Anesthesia History Personal History: No History of Anesthesia Complications Family History: No Family History of Anesthesia Complications Exercise Tolerance Exercise Tolerance: Metabolic Equivalents>4 Pertinent Negatives Pertinent Negatives: No Symptoms of GERD Cardiac & Pulmonary Exam Cardiac Exam: Normal S1/S2 Heart Sounds Pulmonary Exam: Clear Bilateral Breath Sounds Implantable Cardiac Device Does patient have a Pacemaker or an ICD?: No Airway Exam Known Difficult Airway: No Mallampati Class: 2 Mouth Opening: Normal (> 3cm) Thyromental Distance: Greater than 3 cm Neck Range of Motion: Full ROM Neck Circumference: Normal Teeth Condition: Normal Dentition ASA Classification ASA Score: ASA 2 Emergency Case?: No NPO Status NPO Status: NPO Clears >2 hours, Solids >8 hours Status Status: Negative HCG Anesthesia Plan Resuscitation Status: Full Code Anesthesia Technique: General Anesthesia Airway Planned: Endotracheal Tube Pain Management: Surgeon and patient request nerve block Monitors Used: Standard Monitors
[2023-08-12] MEDS: Lactated Ringers 1,000 ML 30 ML IV (08:16)
--- NOTE | 2023-08-12 09:55 | W.ANESNERVE ---
Nerve Block Single Injection Procedure Date and Time Date Performed: 08/12/23 Procedure Start: 09:44 Location Where Procedure Performed Procedure Location: Day Surgery Unit Reason Performed: Postoperative Analgesia Requesting Provider: Derrek Smith Timeout Performed Timeout Performed: Yes Monitoring Used ECG, Blood Pressure and SpO2 Sterility Sterility: Hand Hygiene, Surgical Cap, Surgical Mask, Sterile Gloves and Chlorhexidine Sedation Given During Procedure Sedation Given (Indicate Dose Given): Versed IV Dose:: 2 mg Patient Mental Status Patient Mental Status: Sedate with meaningful communication Nerve Block 1st Nerve Block: Laterality: Left Block Type: Adductor Canal Ultrasound Image Saved?: Yes Needle / Catheter Used: 100mm SonoPlex II Local Anesthetic Bolus (Indicate Dose Given): Lidocaine used for local infiltration of skin, Injected in 3-5ml increments after negative blood aspiration and Bupivacaine 0.25% Dose:: 15 ml Additives (Indicate Dose Given): Normal Saline (hydrodissection) Ultrasound: Sterile probe cover and gel used Nerve Stimulator: Not Used Paresthesia: None Post Procedure Pain score (0-10): 0 Procedure Tolerated: No Complications and Patient tolerated well Procedure Outcome: Successful Performed By: Riley Rosenberg
[2023-08-12] MEDS: ceFAZolin 2 GM/50 ML BAG IVPB (10:42)
[2023-08-12] MEDS: TRANEXAMIC ACID/SOD. CHL. 1,000 MG/100 ML BAG 600 MG IVPB (10:56)
[2023-08-12] MEDS: Bupivacaine 0.25% Pres-Free W/EPI 30 ML VIAL (11:22)
[2023-08-12] MEDS: EPINEPHrine 10 MG/10 ML ML (13:21)
--- NOTE | 2023-08-12 14:27 | W.ANESPOSTOP ---
Postoperative Evaluation Date, Time and Location Date Performed: 08/12/23 Time Performed: 14:27 Patient Location: Day Surgery Unit Vital Signs Most Recent Imported Vital Signs: Most Recent Vital Signs Temp Pulse Resp BP Pulse Ox 36.6 C 61 18 109/66 98 08/12/23 14:11 08/12/23 14:08/12/23 14:11 08/12/23 14:08/12/23 14:11 Pain Score Most Recent Pain Score: Most Recent Pain Score Pain Level 3 08/12/23 14:11 Assessment Mental Status: Awake (Alert & Oriented to Patient Baseline) Airway and Respiratory Function: Patent airway with normal (patient baseline) respiratory exam Cardiovascular Function: Hemodynamically Stable Hydration Status: Adequately Hydrated Nausea & Vomiting: No Nausea or Vomiting Pain: Pt. Denies Any Pain Peripheral Nerve Block: Patient did not receive a nerve block
== END 2023-08-12 15:40 | disposition home or self-care (01) ==
LOC: SUR 07:33
PROVIDERS: PCP Family Medicine; Visit Provider Student in an Organized Health Care Education/Training Program
PROC: (CPT 29888; principal; 2023-08-12 10:15)
DX: S83.512A Sprain of anterior cruciate ligament of left knee, initial encounter (principal); X58.XXXA Exposure to other specified factors, initial encounter; S83.201A Bucket-handle tear of unspecified meniscus, current injury, left knee, initial encounter
CPT/HCPCS: 29888; 29880; 20680; 76942; J0131; J0665; J0690; J1100; J1885; J2001; J2250; J2405; J2704; J3370

== ENCOUNTER 2024-12-25 15:36 | Outpatient (REF) | payer OTHER, MEDICAID, SELFPAY ==
[2024-12-25 18:27] LABS: HCT 38.1 % (36.0-46.0); HGB 12.8 g/dL (11.2-15.7); MCH 29.6 pg (27.0-33.0); MCHC 33.6 % (32.0-36.0); MCV 88 fL (80-95); MPV 10.4 fL (8.0-11.0); Platelet Count 328 10^3/uL (130-400); RBC 4.32 10^6/uL (3.93-5.22); RDW 13.0 % (11.7-14.6); RDW-SD 42.1 fL; WBC 8.60 10^3/uL (4.4-10.8)
[2024-12-25 18:44] LABS: Iron 99 ug/dL (50-170)
[2024-12-25 18:57] LABS: ALT 28 U/L (14-59); AST 17 U/L (15-37); Albumin 3.9 g/dL (3.4-5.0); Alkaline Phosphatase 60 U/L (46-116); Anion Gap 10.8 mmol/L (3-11); BUN 7 mg/dL (7-18); Bilirubin, Total 0.4 mg/dL (0.2-1.0); CO2 26.2 mmol/L (21.0-32.0); Calcium 9.2 mg/dL (8.5-10.1); Chloride 103 mmol/L (98-107); Estimated GFR 92.12 (mL/min/1.73m2); Ferritin 55 ng/mL (8-252); Glucose 80 mg/dL (74-106); Potassium 4.1 mmol/L (3.5-5.1); Sodium 140 mmol/L (136-145); TSH (W/Ref FT4) 0.70 uIU/mL (0.36-3.74); Total Protein 7.1 g/dL (6.4-8.2)
[2024-12-25 19:08] LABS: C-Reactive Protein < 0.50 mg/dL (<or=0.5)
[2024-12-26 08:18] LABS: Lab Add On Test DONE
[2024-12-26 22:10] LABS: FSH <0.3 mIU/mL (See Note)
[2024-12-26 22:12] LABS: LH <0.3 mIU/mL (See Note)
== END 2024-12-25 15:37 | disposition home or self-care (01) ==
LOC: LBN 15:36
PROVIDERS: PCP Family Medicine; Visit Provider Family Medicine
DX: N92.0 Excessive and frequent menstruation with regular cycle (principal); E03.9 Hypothyroidism, unspecified; D72.829 Elevated white blood cell count, unspecified; N92.6 Irregular menstruation, unspecified; I10 Essential (primary) hypertension; R53.83 Other fatigue
CPT/HCPCS: 80053; 82533; 85027; 82670; 82728; 83001; 83002; 83540; 84443; 86140

== ENCOUNTER 2024-12-26 11:42 | Outpatient (REF) | payer OTHER, MEDICAID, SELFPAY | END 2024-12-26 11:43 | disposition home or self-care (01) | LOC: LBN 11:42 | PROVIDERS: PCP Family Medicine; Visit Provider Family Medicine | DX: R53.83 Other fatigue (principal) | CPT/HCPCS: 82533 ==